=== PATIENT | female | born 1945 | race Caucasian/White ===

== ENCOUNTER → 2016-11-16 | Outpatient (CLI) | payer OTHER ==
[~2016-11-16] MED LIST: ATENOLOL50 MG PO; BIOTIN2500 MCG PO; CALCITONIN-SAL3.7 ML; CALCIUM PO; CELEXA20 MG PO; CRESTOR40 MG PO; LUTEIN20 MG PO; NEXIUM PO; NORVASC PO; VITAMIN D50000 UNIT PO
--- NOTE | ~2016-11-16 | US77 ---
[facility] A Service of [facility] RADIOLOGY TEXT RESULTS PATIENT: ELKE BOOTHE LOCATION: [facility] : 43 UNIT #: [id number] AGE: [address]: Sean Huerta MD SEX: F ORDER DR: [id number] [facility] [address]. [place], [place] [address] [id number] O MR#: [id number] Acc #: [id number] NAME: ELKE BOOTHE : 1945 SEX: F STUDY DATE/TIME: 11/16/2016 13:14 UNIT: [facility] ROOM: STUDY DESCRIPTION: US Kidney Bilateral Complete Attending Physician: Sean Huerta M.D. Referring Physician: Sean Huerta M.D. Ordering Physician: Sean Huerta M.D. Primary Care Physician: Sean Huerta M.D. MEDICAL IMAGING REPORT This report is preliminary unless electronic signature is present EXAM Bilateral renal ultrasound 11/16/2016 HISTORY Worsening renal function. Hypertension, on medication. History of kidney stones. COMPARISON Complete abdominal ultrasound 09/27/2007. FINDINGS The right kidney measures approximately 8.2 x 5.5 x 5.6 cm. Right kidney maintains normal cortical thickness and cortical echotexture. A simple cyst in the right upper renal pole measures about 2.9 cm, another cyst in the right mid kidney measures about 9 mm. Dominant right upper renal pole cyst appears unchanged from 2007. There is dzys-nn-lwaxcgrw left hydronephrosis. There is moderate urinary bladder distension pre-void. The patient was allowed to void, and the left hydronephrosis persists. No definite shadowing renal stone or obstructing lesion can be identified on this study. The left renal cortex maintains normal thickness and echotexture. IMPRESSION 1. Lrhp-de-oqmxgtri left hydronephrosis which persists after voiding. No definite obstructing abnormality seen on this examination. Consider correlation to CT abdomen and pelvis without and with contrast. 2. Benign right renal cysts, dominant in the upper pole measuring nearly 2.9 cm, not significantly changed. ST[facility] A Service of [facility] RADIOLOGY TEXT RESULTS PATIENT: ELKE BOOTHE [facility]: [id number] : 41 UNIT #: [id number] AGE: [address]: Sean Huerta MD SEX: F ORDER DR: Dictated by... Sandra Disla M.D. THIS IS AN ELECTRONICALLY VERIFIED REPORT Sandra Disla M.D. at 11/17/2016 7:08 AM KATRIN/debby TD: 11/16/2016 22:44 JOB #: [id number] MEDICAL IMAGING REPORT Page 1 of 1 COPY
== END | disposition home or self-care (01) ==
LOC: CGUS 12:32
DX: R94.4 Abnormal results of kidney function studies (principal); N13.30 Unspecified hydronephrosis; N28.1 Cyst of kidney, acquired; I10 Essential (primary) hypertension
CPT/HCPCS: 76770

== ENCOUNTER → 2016-12-02 | Outpatient (CLI) | payer OTHER ==
--- NOTE | ~2016-12-02 | CR48 ---
[facility] A Service of [facility] RADIOLOGY TEXT RESULTS PATIENT: ELKE BOOTHE LOCATION: [facility] : 41 UNIT #: [id number] AGE: [address]: Itz Lion MD SEX: F ORDER DR: [id number] [facility] [address] [place], [place] [address] [id number] O MR#: [id number] Acc #: [id number] NAME: ELKE BOOTHE : 1945 SEX: F STUDY DATE/TIME: 12/02/2016 16:50 UNIT: [facility] ROOM: STUDY DESCRIPTION: CR Bone Survey Attending Physician: Itz Lion M.D. Referring Physician: Itz Lion M.D. Ordering Physician: Itz Lion M.D. Primary Care Physician: Sean Huerta M.D. MEDICAL IMAGING REPORT This report is preliminary unless electronic signature is present EXAM Radiographic skeletal survey, 12/02/2016. HISTORY 71-year-old female with elevated M-protein levels. Assess for evidence of skeletal involvement by multiple myeloma. TECHNIQUE Radiographic survey of the axial and proximal appendicular skeleton was performed, including the skull, thorax, pelvis, spine and bilateral humeri and femurs. FINDINGS No lytic or sclerotic skeletal lesion is identified to suggest bony involvement by multiple myeloma. No visible pathologic fracture. IMPRESSION Negative skeletal survey. No radiographic evidence of multiple myeloma. Dictated by... Rei Lane M.D. THIS IS AN ELECTRONICALLY VERIFIED REPORT Rei Lane M.D. at 12/04/2016 4:34 PM ALFONSOW/bhakti TD: 12/03/2016 12:50 JOB #: [id number] MEDICAL IMAGING REPORT Page 1 of 1 COPY
== END | disposition home or self-care (01) ==
LOC: CRAD 15:58
DX: D47.2 Monoclonal gammopathy (principal)
CPT/HCPCS: 77075

== ENCOUNTER → 2016-12-22 | Outpatient (CLI) | payer OTHER ==
--- NOTE | ~2016-12-22 | CT4 ---
[facility] A Service of [facility] RADIOLOGY TEXT RESULTS PATIENT: ELKE BOOTHE LOCATION: [facility] : 41 UNIT #: [id number] AGE: [address]: Dilan Garcia MD SEX: F ORDER DR: [id number] [place] [id number] [facility]. [place], [place] [address] [id number] O MR#: [id number] Acc #: [id number] NAME: ELKE BOOTHE : 1945 SEX: F STUDY DATE/TIME: 12/22/2016 10:18 UNIT: [facility] ROOM: STUDY DESCRIPTION: CT Abd and Pelv Wo Cont Attending Physician: Dilan Garcia M.D. Referring Physician: Dilan Garcia M.D. Ordering Physician: Dilan Garcia M.D. Primary Care Physician: Sean Huerta M.D. MEDICAL IMAGING REPORT This report is preliminary unless electronic signature is present EXAM CT abdomen and pelvis without contrast. INDICATIONS Hydronephrosis. Bilateral flank pain for the past month. PROCEDURE Unenhanced CT of the abdomen and pelvis. This CT exam was performed with one or more of the following radiation dose reduction techniques: automatic exposure control, adjustment of mA and/or kV according to patient size, and iterative reconstruction. COMPARISON 02/27/2010 FINDINGS ABDOMEN WITHOUT CONTRAST: Included lung bases are clear. Liver, spleen, adrenal glands, pancreas and gallbladder unremarkable unenhanced appearance. Nonspecific apparent thickening of the stomach, measuring up to 1.6 cm, could be related under distension. There are bilateral renal parapelvic cysts. The bowel loops are nondilated. Appendix is normal. There is no radiodense urinary system calculus. No hydronephrosis. PELVIS WITHOUT CONTRAST: No radiodense bladder calculus. No pelvic mass. No aggressive-appearing bone lesion. IMPRESSION 1. No radiodense urinary system calculus or evidence for hydronephrosis. There are bilateral renal parapelvic cysts similar to the previous CT. 2. Apparent thickening of the stomach is nonspecific and may be related to under distension. Correlate with any suspected gastric pathology. STS. [facility] A Service of [facility] RADIOLOGY TEXT RESULTS PATIENT: ELKE BOOTHE LOCATION: [facility] : 41 UNIT #: [id number] AGE: [address]: Dilan Garcia MD SEX: F ORDER DR: Dictated by... Juve Manning M.D. THIS IS AN ELECTRONICALLY VERIFIED REPORT Juve Manning M.D. at 12/23/2016 2:02 PM THELMA/efrain TD: 12/22/2016 14:49 JOB #: [id number] MEDICAL IMAGING REPORT Page 1 of 1 COPY
== END | disposition home or self-care (01) ==
LOC: CCAT 09:22
DX: N13.30 Unspecified hydronephrosis (principal); N28.1 Cyst of kidney, acquired
CPT/HCPCS: 74176